=== PATIENT | female | born 1945 | race Caucasian/White ===

== ENCOUNTER 2018-08-01 09:25 | Inpatient (IN) | payer OTHER ==
[~2018-08-01] VITALS: Ht 165.1 cm; Wt 158.8 kg
--- NOTE | ~2018-08-01 | HC ---
[facility] [place] [address] CONSULTATION Name: VIOLA DENT Room #: 462-P [facility] IN M.R.#: [id number] Admission: 08/01/18 Attend Phys: Duane Gomez MD Discharge: Date of : 45 Report #: [id number] THIS REPORT FOR: //name// CC: Duane Gomez DATE OF SERVICE: 08/02/2018 HISTORY OF PRESENT ILLNESS: The patient is a 73-year-old white female who has had problems with several falls at home, worsening weakness, nausea, vomiting, decreased p.o. intake. She was diagnosed with gastroenteritis. She had acute renal insufficiency superimposed on chronic kidney disease. She underwent an EGD, which showed evidence of gastritis and she had polypectomy x 2. She does have a concurrent chronic left shoulder pain and has a rotator cuff tear there with degenerative arthritic changes. Ultrasound of the abdomen showed a right renal mass suspicious for neoplasm and she is going down currently for CT scan. We are seeing her in rehabilitation medicine consultation. PAST MEDICAL HISTORY: Morbid obesity, osteoarthritis of the knees, atrial fibrillation, hypertension. She takes anticoagulation with Pradaxa. PAST SURGICAL HISTORY: Noncontributory. FAMILY HISTORY: Noncontributory. ALLERGIES: No known drug allergies. MEDICATIONS: Please see the full medication listing. HABITS: Includes vitamins, herbals, and supplements. SOCIAL HISTORY: She lives in a duplex alone, two steps to get in. She has a stair glide to get up and down the steps. She did not typically utilize gait aids, although she does have a walker there. There is a sister in the area, but the sister ____ down in [place] and is currently on her way or will be leaving soon to go down to [place]. REVIEW OF SYSTEMS: She has the complaints of the left shoulder pain. No current complaints of chest pain, shortness of breath or abdominal discomfort. Denied any bleeding episodes or dark stools. PHYSICAL EXAMINATION: GENERAL: A 73-year-old morbidly obese white female in no obvious distress. VITAL SIGNS: Temperature 98.6, pulse 84, respirations 18, blood pressure 126/61. She is 5 foot 5 inches and weighs 350 pounds. NEUROLOGIC: Facies are symmetric. She favors the left shoulder with the rotator cuff tear. Appears to have reasonable strength, elbow flexion, [facility] [address] [place] [address] CONSULTATION Name: VIOLA DENT Room #: 462-P [facility] IN .R.#: [id number] Admission: 08/01/18 Attend Phys: Duane Gomez MD Discharge: Date of : 45 Report #: [id number] extension in left hand. Favor that right shoulder some as well, although she has better movement of the right shoulder than the left. Strength is probably a grade 4- to 3+/5, right upper extremity. She does have considerable morbid obesity with a large pendulous abdomen. In her lower extremities, there is no focal calf swelling. Strength is a grade 4- to 3+/5. DTRs are trace to 1. Tone appeared to be intact. She was max assist with sit to stand, has not ambulated. The therapist workup here again today and she was able to achieve upright standing transitioning hands on to the walk with only standing assist. She maintained standing for approximately 30 seconds. She was unable to take any steps. ASSESSMENT: A 73-year-old white female with the following problems: 1. Medical complexity with generalized debilitation. 2. Multiple falls at home. 3. Gastroenteritis with evidence of gastritis per EGD. 4. Apparent renal mass to undergo CT of the abdomen. 5. Acute renal insufficiency superimposed on chronic kidney disease. 6. Left shoulder arthritis with rotator cuff tear, chronic. 7. Morbid obesity. 8. Mild cardiomyopathy. 9. Chronic atrial fibrillation. PLAN: She is currently going down for a CT scan. We will add occupational therapy to assess as well. Insurance will need to be checked regarding rehab therapy issues as she further medically stabilizes. We will be glad to follow along with you. By: 1546 0525 Duane Velasquez MD /ISABEL
--- NOTE | ~2018-08-01 | HC ---
[facility] [place] [address] CONSULTATION Name: VIOLA DENT Room #: 462-P [facility] IN M.R.#: [id number] Admission: 08/01/18 Attend Phys: Duane Gomez MD Discharge: Date of : 45 Report #: [id number] THIS REPORT FOR: //name// CC: Duane Gomez HISTORY OF PRESENT ILLNESS: This 73-year-old female who was admitted through the Emergency Room with nausea, vomiting and findings of anemia and presumed gastroenteritis. This part of that evaluation, she has undergone endoscopy, which led to removal of a duodenal polyp. This showed a well-differentiated neuroendocrine tumor/carcinoid. Prior to her hospitalization, she denies any flushing. She has not had issues with diarrhea or ongoing issues with nausea or vomiting. She was unaware of any blood loss in her emesis or stools. PAST MEDICAL HISTORY: Significant for mild cardiomyopathy with atrial fibrillation and longstanding anticoagulation with Pradaxa. She also was morbidly obese with medically managed hypertension and hyperlipidemia. ALLERGIES: None known. MEDICATIONS: As in the MFR. REVIEW OF SYSTEMS: Negative for any sweats, chills, fevers, antecedent weight loss, palpable masses, new areas of pain. It is otherwise as in the history of present illness. SOCIAL HISTORY: She is a nonsmoker with occasional alcohol. FAMILY HISTORY: Negative for malignancy. PHYSICAL EXAMINATION: GENERAL: Shows her to be alert. HEENT: Normocephalic. Her mouth is clear. LUNGS: Chest is clear. CARDIOVASCULAR: Irregularly irregular pulse. ABDOMEN: Morbid obesity. EXTREMITIES: No clubbing. NEUROLOGIC: No focal localizing signs. PSYCHIATRIC: Not agitated or confused. LYMPHATICS: No palpable supraclavicular adenopathy. SKIN: Normal turgor. LABORATORY DATA: Labs have shown iron deficiency anemia. Her pathology from this lesion shows the deep resection margin with the tumor extending to that inked margin, which is concerning. Otherwise, appears low grade with low number of mitoses. 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 PLAN: Laboratory studies have been ordered. We will discuss with GI regarding further resection and I have discussed possible neuroendocrine PET scan for further evaluation though earlier CAT scans show nothing to suggest liver metastasis or widespread disease outside of this resected area. Thanks for allowing us to see her in consultation and being allowed to participate in her care. By: 1118 1254 Ange Pedersen MD /nt
[~2018-08-01 09:25] MED LIST: BENICAR HCT 401 EAC1 PO; CARVEDILOL6.25 MG PO; FLEXERIL PO; NORCO 5-325 TA1 EACH PO
[2018-08-01 09:26] VITALS: BP 115/68
[2018-08-01 09:59] LABS: HEMOGLOBIN 8.2 gm/dL (12.0-15.0)
[2018-08-01 10:08] LABS: HEMATOCRIT 28.3 % (37.0-47.0); MCH 23.1 pg (26.0-34.0); MCV 79.6 fL (80.0-100.0); PLATELET COUNT 168 thou/uL (150-400); RBC 3.56 mil/uL (4.20-5.00); WBC 7.1 thou/uL (4.0-11.0)
[2018-08-01 10:10] LABS: ANION GAP 12 mmol/L (7-16); BUN 47 mg/dL (7-18); CALCIUM 9.8 mg/dL (8.5-10.1); CHLORIDE 104 mmol/L (98-107); CO2 23 mmol/L (21-32); GLUCOSE 104 mg/dL (74-106); POTASSIUM 4.6 mmol/L (3.5-5.1); SODIUM 139 mmol/L (136-145)
[2018-08-01 10:15] LABS: MAGNESIUM 1.8 mg/dL (1.8-2.4)
[2018-08-01 10:19] LABS: LIPASE 120 U/L (73-393); SGOT 45 U/L (15-37); SGPT 26 U/L (30-65); TOTAL BILIRUBIN 1.1 mg/dL (<0.1-1.0); TOTAL PROTEIN 6.2 g/dL (6.4-8.2); TROPONIN-I <0.06 ng/mL (<0.06)
[2018-08-01 10:28] LABS: URINE CLARITY CLEAR; URINE COLOR YELLOW; URINE SPECIFIC GRAVITY 1.025 (1.005-1.035)
[2018-08-01 10:29] LABS: URINE BILIRUBIN NEGATIVE (Negative); URINE BLOOD NEGATIVE (Negative); URINE GLUCOSE-RANDOM* NEGATIVE (Negative); URINE KETONES NEGATIVE (Negative); URINE LEUKOCYTES-REFLEX NEGATIVE (Negative); URINE NITRITE-REFLEX NEGATIVE (Negative); URINE PROTEIN (DIPSTICK) NEGATIVE (Negative); URINE UROBILINOGEN 0.2 E.U./dl (0.2-1.0)
[2018-08-01] MEDS ORDERED: PRADAXA150 MG PO (10:54)
[2018-08-01] MEDS ORDERED: DILTIAZEM 24HR360 M1 PO (10:55)
[2018-08-01] MEDS ORDERED: CRESTOR5 MG PO (10:56)
[2018-08-01] MEDS ORDERED: COZAAR 25 MG TA25 M1 PO (10:56)
[2018-08-01 10:59] VITALS: BP 119/67
[2018-08-01 11:00] LABS: APTT 40.2 Seconds (24.5-32.8); INR 1.2; PROTIME 12.5 Seconds (9.3-11.4)
[2018-08-01 11:10] VITALS: BP 122/64
[2018-08-01 11:30] VITALS: BP 112/66
[2018-08-01 11:33] LABS: ABSOLUTE NEUTROPHILS 6.3 thou/uL (1.4-8.2); ANISOCYTOSIS 2+; HYPOCHROMASIA 1+
[2018-08-01 11:34] LABS: OVALOCYTES FEW; TEARDROPS OCCASIONAL
--- NOTE | 2018-08-01 13:23 | EKG ---
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
[2018-08-01 14:29] LABS: % SATURATION 7 % (20-39); IRON 24 ug/dL (50-170); TIBC 340 ug/dL (250-450)
--- NOTE | 2018-08-01 15:23 | 2DMMODE ---
[place] [address] [facility] [place] [address] 2 D/M-MODE ECHOCARDIOGRAM Name: VIOLA DENT Room #: 462-P [facility] IN ..#: [id number] Admission: 08/01/18 Attend Phys: Dc López MD Discharge: Date of : 45 Date of Service: 08/01/18 1522 Report #: [id number] THIS REPORT FOR: //name// APPROVED REPORT Study performed: 08/01/2018 14:18:13 EXAM: Comprehensive 2D, Doppler, and color-flow Echocardiogram Patient Location: Bedside Room #: 462 Status: routine BSA: 2.51 HR: 111 bpm BP: 112/66 mmHg Rhythm: Atrial Fibrillation Other Information Study Quality: Adequate Technically limited study due to morbid obesity, limited mobility. Indications Permanent A-fib. Hx: Cardiomyopathy, HTN, HLP. 2D Dimensions RVDd: 49.22 mm IVSd: 14.24 (7-11mm) LVOT Diam: 20.12 (18-24mm) LVDd: 46.07 mm PWd: 14.19 (7-11mm) Ascending Ao: 38.04 (22-36mm) LVDs: 32.57 (25-40mm) Aortic Root: 33.09 mm Volumes Left Atrial Volume (Systole) Single Plane 4CH: 127.27 mL Single Plane 2CH: 127.91 mL LA ESV Index: 54.00 mL/m2 Aortic Valve AoV Peak Albaro.: 3.23 m/s AO Peak Gr.: 41.82 mmHg LVOT Max P.08 mmHg AO Mean Gr.: 28.05 mmHg AO V2 Mean: 2.56 m/s LVOT Max V: 1.01 m/s AO V2 VTI: 64.57 cm ZIA Vmax: 0.99 cm2 [facility] [place] [place] [address] 2 D/M-MODE ECHOCARDIOGRAM Name: VIOLA DENT Room #: 462-P [facility] IN M.R.#: [id number] Admission: 08/01/18 Attend Phys: Dc López MD Discharge: Date of : 45 Date of Service: 08/01/18 1522 Report #: [id number] Mitral Valve MV Decel. Time: 206.53 ms MV E Max Albaro.: 1.31 m/s Pulmonary Valve PV Peak Albaro.: 0.96 m/s PV Peak Gr.: 3.78 mmHg Tricuspid Valve TR Peak Albaro.: 3.02 m/s RAP Estimate: 10.00 mmHg TR Peak Gr.: 36.36 mmHg PA Pressure: 46.00 mmHg Left Ventricle The left ventricle is normal size. There is normal LV segmental wall motion. Mild concentric left ventricular hypertrophy. Left ventricular systolic function is normal. LVEF is 50-55%. This study is not technically sufficient to allow evaluation of the LV diastolic function due to atrial fibrillation. Right Ventricle Right ventricle is dilated. The right ventricular systolic function is normal. Atria Left atrium is dilated. Right atrium is dilated. Aortic Valve Aortic valve is moderately calcified, moderately stenotic. Trace aortic regurgitation. Calculated aortic valve area is 1.0 cm2 with maximum pressure gradient of 41 mmHg and mean pressure gradient of 27mmHg. Mitral Valve Mild mitral annular calcification Trace to mild mitral regurgitation. Tricuspid Valve The tricuspid valve is normal in structure. Mild to moderate tricuspid regurgitation. Estimated PAP is 45mmHg. Pulmonic Valve Pulmonic valve is not well visualized. Trace pulmonic regurgitation. Great Vessels The aortic root is normal in size. The ascending aorta is borderline [facility] [address] [place] [address] 2 D/M-MODE ECHOCARDIOGRAM Name: VIOLA DENT Room #: 462-P [facility] IN ..#: [id number] Admission: 08/01/18 Attend Phys: Dc López MD Discharge: Date of : 45 Date of Service: 08/01/18 1522 Report #: [id number] dilated. IVC is dilated and collapses >50% with inspiration. Pericardium There is no pericardial effusion. <Conclusion> Left ventricular systolic function is normal. There is normal LV segmental wall motion. LVEF 50-55%. Both atria are dilated. Aortic valve is moderately calcified, moderately stenotic. Calculated aortic valve area is 1.0 cm2 with maximum pressure gradient of 41 mmHg and mean pressure gradient of 27mmHg. Mild mitral annular calcification. Trace to mild mitral regurgitation. Mild to moderate tricuspid regurgitation. Estimated pulmonary artery pressure of 45mmHg. There is no pericardial effusion. <ELECTRONICALLY SIGNED> By: Christian Machado MD, [facility] 08/01/18 1522 1522 1522 Christian Machado MD, FACC /INF
[2018-08-01 15:50] VITALS: BP 116/51
--- NOTE | 2018-08-01 15:56 | NUR ---
CM CONSULTED FOR ADVANCED DIR AND DCP. PT NEW TO UNITE TODAY. VIOLA IS A & O X3, AND ABLE TO MAKE HER NEEDS KNOW. SISTER AND BROTHER IN LAW AT BEDSIDE WELL. INTRO TO CM, TRANSITION OF CARE, HOME HEALTH AND POST ACUTE REHAB. " [place] REHAB WOULD BE GOOD, NOT SURE WITH SHOULDER PAIN IF COULD GO HOME RIGHT NOW ANY WAY"/PT. [facility] SNF LIST PROVIDED AND EDUCATION ON ADVANCED HC/DPOA " I DON'T NEED ONE OF THOSE"/PT. GI PHYSICIAN MADE VISIT PT AGREED TO UPPER SCOPE AND DECLINED WANTING TO DO COLON SCOPE " I WILL THINK ABOUT COLON SPOKE AND LET YOU KNOW TOMORROW"/VIOLA. PT REPORTED " 4 FALLS, JUST GET SO WEAK, LIKE MY FOOT DID NOT MAKE IT ON TO BED AND FELL. LIVE IN [facility], 2 STEP INTO FROM GARAGE, THE 15 STEPS INSIDE HOME. HAVE STAIR LIFT FOR 12 STAIRS THEN HAVE LANDING AND 3 MORE STAIRS. HAVE SHOWER CHAIR, GRAB BARS, WALKER WITH SEAT THAT I USE OUTSIDE THE HOME. MANAGE OWN MEDICATION AND I DO TAKE PRADAXA. INDEPENDENT WHEN FEELING OK, DON'T CLEAN. CARRY CELL PHONE AROUND, NO LIFE ALERT. MY SISTER, THEY STAY IN [place] IN WINTER AND HER OTHER TIME OF YEAR. SHE HAS TO GO BACK BY [place] NEXT WEEK CAN COME FOR VISIT AND CAN GET TO REHAB. THINKING [facility]."VIOLA AND SISTER. EDUCATION THAT DEPENDING ON TEST AND PROCEDURE RESULT POSSIBLE DC TO REHAB SOONER THAN NEXT WEEK. " THAT IS GREAT THANKS"/PT. WILL CONT FOLLOWING NEEDED FOR DC NEEDS.
--- NOTE | 2018-08-01 15:58 | NUR ---
PT ARRIVED ON UNIT FROM ER. ADMISSION HX, ASSESSMENT AND MED REC COMPLETE. ORDERS IMPLEMENTED. EGD TOMORROW. PT RESTING, FAMILY AT BEDSIDE.
[2018-08-01 19:43] VITALS: BP 105/42
--- NOTE | 2018-08-02 04:07 | NUR ---
Pt. rested quietly at short intervals during the night when checked on during frequent rounds. She did c/o pain to her left shoulder and was given po pain meds (see emar) with some relief of pain noted. Bed alarm is on.
[2018-08-02 05:22] VITALS: BP 106/78
[2018-08-02 05:55] LABS: CALCIUM 9.1 mg/dL (8.5-10.1); CREATININE 1.6 mg/dL (0.6-1.0); POTASSIUM 4.3 mmol/L (3.5-5.1)
[2018-08-02 05:57] LABS: HEMATOCRIT 24.6 % (37.0-47.0); HEMOGLOBIN 7.3 gm/dL (12.0-15.0); MCH 23.1 pg (26.0-34.0); MCHC 29.6 g/dL (28.0-37.0); MCV 77.9 fL (80.0-100.0); RBC 3.15 mil/uL (4.20-5.00); RDW 19.8 % (10.5-14.5); WBC 6.7 thou/uL (4.0-11.0)
[2018-08-02 07:55] VITALS: BP 126/61
--- NOTE | 2018-08-02 08:43 | EKG ---
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: : 1945 Requested By: Ani Fonseca Order Number: [id number] MD: Christian Machado Measurements Intervals [place] Rate: 91 P: [place]: QRS: -62 QRSD: 148 T: 10 QT: 390 QTc: 480 Interpretive Statements Atrial fibrillation IVCD, consider atypical RBBB Low voltage QRS Compared to ECG 08/01/2018 10:17:57 No significant change was found Electronically Signed On 08-02-2018 8:43:15 STATISTICAL CLERK by Christian Machado [email or web address] <ELECTRONICALLY SIGNED> By: Christian Machado MD, [facility] 08/02/18 0843 1 1 Christian Machado MD, [facility] /EPI
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
--- NOTE | 2018-08-02 11:10 | NUR ---
Assess due to RD consult received for diet instruction. Pt admitted with weakness, anemia. Lives alone. Class III extreme obesity with BMI 58.2. EGD today and possible need for colonoscopy and M2 capsule study, On IV iron. Renal mass was noted. Will defer any diet education for obesity at this time while etiology anemia being determined. Low nutrition risk.
--- NOTE | 2018-08-02 11:16 | NUR ---
WOUND CONSULT: PT. WAS SEEN TODAY FOR WOUND EVLAUATION. PT. 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 PT. REPORTS THAT SHE HAS HAD MULTIPLE IN THE PAST AND THEY HEAL WELL. SHE STATES THAT THIS IS THE LARGEST ONE YET. WOUND BED IS BEEFY RED AND FREE OF ANY SIGNS OR SYMPTOMS OF INFECTION. RECOMMENDATIONS: WOUND CARE TO LEFT LATERAL LEG: GENTLY CLEANSE AREA WITH WOUND CLEANSER OR NORMAL SALINE, COVER WITH OPTIFOAM AG, SECURE WITH KERLIX AND TAPE. COMPLETE CARES DAILY AND PRN. PT. AND STAFF NURSE WERE INSTRUCTED ON PLAN OF CARE.
[2018-08-02 15:17] LABS: HEMATOCRIT 25.7 % (37.0-47.0); HEMOGLOBIN 7.6 gm/dL (12.0-15.0)
[2018-08-02 16:12] VITALS: BP 93/55
--- NOTE | 2018-08-02 18:28 | NUR ---
DR. OQUENDO SAW PATIENT THIS DATE FOR CONSULTATION. OCCUPATIONAL THERAPY HAD NOT SEEN PATIENT YET AND PATIENT IS NOT MEDICALLY READY FOR REHAB ADMISSION THIS DATE. DAIRY FEED SALES CONSULTANT WILL FOLLOW. THANK YOU FOR THIS REFERRAL.
[2018-08-02 19:56] VITALS: BP 102/0; BP 102/50
--- NOTE | 2018-08-02 19:59 | NUR ---
PATIENT SAT UP ON SIDE OF BED THROUGHOUT THE DAY TODAY. WOUND CARE PLACED DRESSING ON LEFT ANKLE ULCER. VILLANUEVA INTACT. IRON INFUSION GIVEN. MEDICATED WITH TRAMADOL FOR LEFT SHOULDER PAIN AND HELPFUL. EGD DONE THIS AFTERNOON WITH NO SIGNS OF BLEEDING REPORTED. CT ABD DONE. SCHEDULED FOR COLONOSCOPY IN AM. INSTRUCTED NPO AFTER MIDNIGHT.
[2018-08-03 03:29] VITALS: BP 103/65
[2018-08-03 05:44] LABS: HEMATOCRIT 28.5 % (37.0-47.0); HEMOGLOBIN 8.1 gm/dL (12.0-15.0)
[2018-08-03 05:59] LABS: CALCIUM 9.8 mg/dL (8.5-10.1); CREATININE 1.5 mg/dL (0.6-1.0); POTASSIUM 4.1 mmol/L (3.5-5.1)
--- NOTE | 2018-08-03 08:09 | NUR ---
PROGRESS PT TAKING BOWEL PREP UP WITH 1 TO 3 FOR SAFETY, STOOLING THROUGHOUT SHIFT BY THIS TIME STOOL IS CLEAR WATERY YELLOW, TELE READING AFIB WITH RVR RATES FROM 24 TO 180 PT ASYMPTOMATIC NOTIFIED TO COME IN AND EVALUATE PT.
[2018-08-03 08:39] VITALS: BP 136/85
--- NOTE | 2018-08-03 16:08 | NUR ---
[facility]N HAS SOUGHT AUTH FOR ACUTE INPATIENT REHAB. CM TO FOLLOW INDICATED WITH DC PLANNING.
[2018-08-03 16:56] VITALS: BP 109/58
--- NOTE | 2018-08-03 17:41 | NUR ---
[address] [place] [address] CONSULT RECEIVED 08/02/[address] OQUENDO ASSESSED PATIENT. PATIENT DEMONSTRATES THE NEED FOR AN ACUTE INPATIENT REHAB UNIT STAY; SEE DR. OQUENDO'S CONSULT FOR DETAILS. GLOBAL MARKETING OPERATIONS MANAGER PHONES CARLEY AT 14:40 TO INITIATE REQUEST FOR AUTHORIZATION OF AN ACUTE INPATIENT REHAB UNIT STAY. SPOKE WITH KAM ([phone]) WHO TAKES INITIAL INFORMATION AND PROVIDES PENDING CASE REFERENCE NUMBER: [id number]. FAXED CLINICAL INFORMATION FOR REVIEW TO [phone]. RECEIVED A PHONE CALL FROM CARLEY SNEED, FOR USABILITY SPECIALIST PETER REQUESTING CLINICAL INFORMATION BE FAXED TO [phone]. FAXED CLINICAL AT 15:50. AT APPROXIMATELY 1700, GLOBAL MARKETING OPERATIONS MANAGER SPOKE WITH PETER (PHONE: [phone]). PETER STATES THE CASE IS IN REVIEW WITH THE SLATE ROOFER HELPER, HOWEVER, ALSO INDICATES WE LIKELY WILL NOT GET A DECISION TODAY. PETER PROVIDES ON-CALL RN PHONE, , TO CONTACT ON 08/04/2018 IF A DECISION IS NOT RENDERED TODAY, 08/03/18. WILL CONTINUE TO AWAIT A DECISION FROM CARLEY. THANK YOU FOR THIS REFERRAL.
--- NOTE | 2018-08-03 18:16 | NUR ---
Pt taken down for colonoscopy at 1030 am. FC maintained since pt is in severe pain when getting up fr bed. Diet has been changed to a soft fiber restricted diet and i well tolerated. Plan is for pt to go to rehab on the 5th floor
[2018-08-03 19:58] VITALS: BP 128/55
--- NOTE | 2018-08-04 00:31 | NUR ---
Assumed care of the patient at 1944 pm. Alert et oriented x 4. Makes needs known. Demanding at times. Complained of pain earlier in the shift, medicated with prn pain medication. She complained of her left shoulder hurting, rated it a 6/10. Muñiz draining with clear lewis urine to DD. IV site intact to left hand. Dressing changed to the patient's left foot wound. Sitting on the side of the bed at this time.
[2018-08-04 05:28] LABS: HEMATOCRIT 25.6 % (37.0-47.0); HEMOGLOBIN 7.4 gm/dL (12.0-15.0)
[2018-08-04 05:35] LABS: CALCIUM 9.6 mg/dL (8.5-10.1); CREATININE 1.6 mg/dL (0.6-1.0); POTASSIUM 3.8 mmol/L (3.5-5.1)
[2018-08-04 08:00] VITALS: BP 146/67
--- NOTE | 2018-08-04 08:51 | NUR ---
AIRPLANE INSPECTOR PHONED CARLEY'S WEEKEND ON-CALL RN AT [phone] AT APPROXIMATELY 8:15. SPOKE WITH AN ANSWERING PERSONAL CONSULTANT WHO STATED A [employer] PUBLIC ADDRESS SYSTEM OPERATOR WOULD RETURN LIAISON'S PHONE CALL. RECEIVED PHONE CALL FROM CARLEY SCHWARZ PUBLIC ADDRESS SYSTEM OPERATOR RN, AT 8:49. KARISHMA STATES REQUEST FOR AUTHORIZATION FOR ACUTE REHAB IS STILL PENDED. SHE STATES THE AQUATIC LIFE LABORER HAS NOT YET REVIEWED THE CASE AND THAT THERE IS NO REVIEW FOR INPATIENT REHAB OVER THE WEEKEND. THUS, ANTICIPATE WE WILL HAVE A DETERMINATION ON 08/06/18. WILL AWAIT CARLEY'S DETERMINATION. PATIENT DOES NOT HAVE AUTHORIZATION FOR ACUTE REHAB AT THIS TIME.
[2018-08-04 15:00] VITALS: BP 106/56
[2018-08-04 19:36] VITALS: BP 103/48
--- NOTE | 2018-08-04 19:37 | NUR ---
Pt vs stable, FC maintianed due to sever pain when she moves and cannot ambulate and obesity. Pt is very demanding and wound want to be sitting at the side of the bed then would ask to be moved up to the bed to just go back down again. Dresing change done twice due the dressing being soaked of drainage. Pt still has pain on her left shoulder but did not request for pain meds and did mention she would like to take them prior to going to sleep tonight, No complaints or other issues identified.
--- NOTE | 2018-08-05 01:38 | NUR ---
The patient has been sitting on the side of the bed at times during this noc shift. Alert et oriented X 4. Makes needs known. Has trouble moving around in her bed due to her obesity. Dressing intact to her left ankle/foot. She complained of pain earlier in the shift, requested pain medication, which was given as per her request. She has been sleeping a few hours so far this noc shift.
[2018-08-05 05:06] VITALS: BP 101/79
--- NOTE | 2018-08-05 05:30 | NUR ---
PT HAS VILLANUEVA FOR IMMOBILIZATION
--- NOTE | 2018-08-05 05:40 | NUR ---
THE PATIENT HAS BEEN SITTING ON THE SIDE OF THE BED FOR ABOUT 2 HOURS THIS NOC SHIFT. LEFT ANKLE WOUND WAS CLEANED WITH WOUND CLEANSER AND THE DRESSING WAS PUT ON ORDERED, WRAPPED WITH KERLIX AND APPLIED TAPE TO THE KERLIX. S.L. FLUSHS WITHOUT ANY DIFFICULTY. DENIES PAIN AT THIS TIME. ASSISTED THE PATIENT BACK TO BED AFTER THIS NATIONAL SALES ASSOCIATE DID HER WOUND CARE.
[2018-08-05 07:43] VITALS: BP 128/61
[2018-08-05 10:22] LABS: HEMATOCRIT 24.6 % (37.0-47.0); HEMOGLOBIN 7.2 gm/dL (12.0-15.0); MCH 23.8 pg (26.0-34.0); MCHC 29.4 g/dL (28.0-37.0); MCV 81.1 fL (80.0-100.0); RBC 3.04 mil/uL (4.20-5.00); RDW 19.6 % (10.5-14.5); WBC 8.5 thou/uL (4.0-11.0)
[2018-08-05 10:33] LABS: CALCIUM 9.3 mg/dL (8.5-10.1); CREATININE 1.5 mg/dL (0.6-1.0); POTASSIUM 4.4 mmol/L (3.5-5.1)
[2018-08-05 11:54] VITALS: BP 115/68
[2018-08-05 16:04] VITALS: BP 132/51
--- NOTE | 2018-08-05 19:24 | NUR ---
PT STABLE THROUGHOUT SHIFT. NO C/O PAIN, SEVERAL VISITORS. PT RESTING COMFORTABLY.
[2018-08-05 19:44] VITALS: BP 101/38
[2018-08-06 03:39] VITALS: BP 117/62
--- NOTE | 2018-08-06 04:57 | NUR ---
progress pt a/o x4 up with 1 assist and walker, using bsc, pain to left shoulder controlled with tramadol and repositioning. iv dc'd from hand d/t pt c/o pain and site was slightly swollen and red 22 g started in left forearm. voiding qs, no bm this shift pt dozed off and on. hopes to dc to rehab today.
[2018-08-06 08:46] VITALS: BP 108/65
--- NOTE | 2018-08-06 09:07 | NUR ---
SLIDE FASTENER CHAIN ASSEMBLER RECEIVED PHONE CALL FROM [employer], PETER, REGARDING AUTHORIZATION FOR ACUTE REHAB STAY FOR PATIENT. ACUTE REHAB HAS BEEN PRELIMINARILY DENIED. PEER TO PEER OPTION IS AVAILABLE. IF PHYSICIAN WOULD LIKE TO CONTINUE TO PURSUE ACUTE REHAB AN OPTION FOR THE PATIENT, MUST BE CALLED BY 1PM ON MONDAY, AUG 08, TO SCHEDULE A PEER TO PEER. HR SYSTEMS ANALYST/RED LEAD BURNER INFORMED.
--- NOTE | 2018-08-06 10:14 | NUR ---
5N WAS DENIED BY INSURANCE. C, MET WITH PT AT BEDSIDE AND ASKED WHERE SHE WOULD LIKE REFERRALS SENT FOR POST ACUTE CARE STAY AND SHE INDICATED [facility]. CM REQUESTED THAT DC HOSPITAL EDUCATOR FAX REFERRALS. CM TO FOLLOW INDICATED WITH DC PLANNING.
--- NOTE | 2018-08-06 10:28 | NUR ---
DP SENT REFERRALS FOR REVIEW TO [facility] AND [facility], DP SENT TEXT TO BOTH LOCATIONS, ADVISING THAT REFERRAL WAS BEING FAXED OVER ON PATEINT.
--- NOTE | 2018-08-06 12:29 | NUR ---
WOUND CARE FOLLOW UP; F/U WITH THE LEFT LAT VENOUS STASIS WOUND REVEALS A YELLOW FIBRINOUS WOUND BED. NO S/S OF INFECTION. RECOMMENDATION; ADD CESAR CHANGE M/W/F PRN, MAY CHANGE THE FOAM PORTION OF THE DRESSING IF DRESSING IS OVERTAKED WITH DRAINAGE. DISCUSSED WITH ERROL
[2018-08-06 12:38] LABS: HEMATOCRIT 29.4 % (37.0-47.0); HEMOGLOBIN 8.2 gm/dL (12.0-15.0); MCH 23.3 pg (26.0-34.0); MCHC 27.9 g/dL (28.0-37.0); MCV 83.5 fL (80.0-100.0); RBC 3.52 mil/uL (4.20-5.00); RDW 19.7 % (10.5-14.5); WBC 10.5 thou/uL (4.0-11.0)
[2018-08-06 12:49] LABS: CALCIUM 9.6 mg/dL (8.5-10.1); CREATININE 1.3 mg/dL (0.6-1.0); POTASSIUM 4.1 mmol/L (3.5-5.1)
--- NOTE | 2018-08-06 14:33 | NUR ---
PER , NEEDS TO BE SEEN BY ONC PRIOR TO DC, POSSIBLE DC TOMORROW PER
--- NOTE | 2018-08-06 15:06 | PATH ---
[facility] [place] [address] PATHOLOGY RPT PROCEDURE Name: VIOLA DENT Room #: 462-P ADM IN M.R.#: [id number] Admission: 08/01/18 Date of : 45 Discharge: Report #: [id number] Path Case #: [id number] [facility] Accession Number: [id number] . 01 Material submitted: . PART A: CECAL POLYP X 2 PART B: PROXIMAL ASCENDING COLON POLYP X 2 PART C: POLYP AT 30 CM X 2 PART D: RECTAL POLYP . 01 Clinical history: . Pre-OP DX: Anemia Post-OP DX: Colon polyps, rectal polyp . 02 Diagnosis: A. Polyp x 2, cecal polyp, endoscopic biopsy: - Tubular adenoma present in multiple fragments. - Negative for high-grade dysplasia. . B. Polyp x 2, proximal ascending colon polyp, endoscopic biopsy: - Favor an inflammatory polyp (please see comment). - Negative for dysplasia. . C. Polyp, polyp x 2 at 30 cm, endoscopic biopsy: - Multiple fragments showing changes compatible with hyperplastic polyps. - Negative for dysplasia. . D. Polyp, rectal polyp, endoscopic biopsy: - Tubular adenoma. - Negative for high-grade dysplasia. [facility]/08/06/2018 . 02 Comment: B. Examination shows partially hyalinized lamina propria with regenerative crypt epithelium as well as a mixture of inflammatory cells within the lamina propria. A focus of crypt abscess formation is identified as well. The regenerative epithelium as well as lamina propria fibrosis mimic ischemia-like changes. Overall, the inflammatory change as well as the regenerative changes within the surface epithelium maybe suggestive of an inflammatory polyp. The differential diagnosis includes ischemic changes. Please correlate clinically. (IUV:pit 08/06/2018) . 02 Electronically signed: . Michelle Reina MD, Pathologist NPI- [id number] . [address] [address] PATHOLOGY RPT PROCEDURE Name: DENTVIOLA Room #: 462-P [facility] IN ..#: [id number] Admission: 08/01/18 Date of : 45 Discharge: Report #: [id number] Path Case #: [id number] Gross description: . A. Received in formalin labeled "Viola Dent, cecal polyp x2," are 3 segments of cohen soft tissue measuring 1.1 x 0.5 x 0.2 cm in aggregate dimensions and ranging from 0.3 to 0.5 cm in maximum dimension. The specimen is submitted entirely in cassette A1. . B. Received in formalin labeled "Viola Dent, proximal ascending colon polyp x2," are 2 segments of cohen soft tissue measuring 0.9 x 0.3 x 0.3 cm in aggregate dimensions and ranging from 0.4 to 0.5 cm in maximum dimension. The specimen is submitted entirely in cassette B1. . C. Received in formalin labeled "Viola Dent, polyp at 30 cm x2," are 3 segments of cohen soft tissue measuring 1.5 x 0.8 x 0.2 cm in aggregate dimensions and ranging from 0.4 to 1.4 cm in maximum dimension. The specimen is submitted entirely in cassette C1. . D. Received in formalin labeled "Viola Dent, rectal polyp, " is a single segment of cohen soft tissue measuring 0.6 cm in maximum dimension. The specimen is entirely submitted in cassette D1. (TSD; 08/03/2018) TOB/TOB . 02 Pathologist provided ICD-10: D12.0, K63.5, D12.8 . 02 CPT . 232443, 490193, 406359, 594787 Specimen Comment: A courtesy copy of this report has been sent to Specimen Comment: [phone], . Specimen Comment: Report sent to / DR QUAN Performed at: [address], [place] [id number] MD Kar Chavez MD Phone: [phone] Performed at: [address] [id number] MD Michelle Reina MD Phone: [phone]
--- NOTE | 2018-08-06 15:06 | PATH ---
[facility] [place] [address] PATHOLOGY RPT PROCEDURE Name: VIOLA DENT Room #: 462-P ADM IN M.R.#: [id number] Admission: 08/01/18 Date of : 45 Discharge: Report #: [id number] Path Case #: [id number] [facility] Accession Number: [id number] . 01 Material submitted: . PART A: BX GASTRIC PART B: POLYP AT DUODENAL BULB PART C: ANTRAL POLYP . 01 Clinical history: . Anemia Gastric polyp, duodenal bulb polyp, mild gastritis Rule out H. pylori . 02 Diagnosis: A. Gastric mucosa, gastric, endoscopic biopsy: - Moderated to marked active gastritis with focal early intestinal metaplasia. - Negative for atrophy or dysplasia. - Negative for Helicobacter pylori (properly controlled immunohistochemical stain performed). . B. Polyp, at duodenal bulb, endoscopic biopsy: - WELL DIFFERENTIATED NEUROENDOCRINE TUMOR, GRADE 1 WITH LESS THAN 2 MITOSES/MM2 MEASURING 0.6CM IN GREATEST DIMENSIONS. - EXTENDS TO THE INKED MARGIN. . C. Polyp, antral polyp, endoscopic biopsy: - Compatible with a hyperplastic and inflammatory polyp. - Negative for dysplasia or malignancy. [facility]/08/06/2018 . 02 Comment: Part A: An intensive search for Helicobacter pylori-like organisms is negative. Absence of such organisms does not entirely exclude the possibility and may be due to sampling. Other possible etiologies may include chemical gastritis, autoimmune gastritis, gastritis associated with inflammatory bowel disease. Please correlate with clinical, endoscopic, and microbiological studies if clinically indicated. . Part B: Immunohistochemical stains are performed on block B1 and included synaptophysin, chromogranin and villin (on block B). The tumor is strongly reactive to synaptophysin and chromogranin. The tumor is non-reactive to villin. Findings are consistent with a carcinoid tumor or a well differentiated neuroendocrine tumor (WHO terminology). Multiple high power zaragoza are examined and show less than 2 mitoses per high power field. The tumor extends to the inked margins on the biopsy tissue. The [address] [address] PATHOLOGY RPT PROCEDURE Name: VIOLA DENT Room #: 462-P [facility] IN M.R.#: [id number] Admission: 08/01/18 Date of : 45 Discharge: Report #: [id number] Path Case #: [id number] account executive sales representative slides of this case are co-reviewed with Dr. Tomasa Baird who concurs with my diagnosis. Findings of this case are discussed with Dr. Dc López in the morning of 08/06/[address] Pavon at approximately 12:45 pm on 08/06/18. . (IUV:pit:db 08/06/2018) . . 02 Electronically signed: . Michelle Reina MD, Pathologist NPI- [id number] . 01 Gross description: . A. The specimen is received in formalin, labeled "Dent, Viola, gastric BX" and consists of a fragment of soft cohen tissue measuring 0.4 x 0.4 x 0.2 cm which is entirely submitted in A1. . B. The specimen is received in formalin, labeled "Dent, Viola, polyp at duodenal bulb" and consists of a polypoid segment of pink-cohen tissue measuring 0.8 x 0.6 x 0.5 cm. The margin is inked black. It is trisected and entirely submitted in B1. . C. The specimen is received in formalin, labeled "Dent, Viola, antral polyp" and consists of a polypoid segment of pink-cohen tissue measuring 0.6 x 0.5 x 0.4 cm. The margin is inked black. It is bisected and entirely submitted in C1. (SDY; 08/02/2018) SYU/SYU . 02 Pathologist provided ICD-10: K29.60, D3A.8, K31.7 . 02 CPT . 252525, 076106, 930058, W96177, T47115 Specimen Comment: A courtesy copy of this report has been sent to Specimen Comment: [phone], , . Specimen Comment: Report sent to ,DR LÓPEZ / DR QUAN Performed at: [address], [place], [place] [id number] MD Kar Chavez MD Phone: [phone] Performed at: [address] [id number] MD Michelle Reina MD Phone: [phone]
[2018-08-06 17:26] VITALS: BP 116/78
--- NOTE | 2018-08-06 19:30 | NUR ---
UP AND SITTING BY SIDE OF BED THROUGH THE DAY. SHE DOES NOT SEEM TO BE IN PAIN. WEAPING WOUNDS NOTED TO LLE. DRESSING CHANGED IT WAS WHEEPING. PT CONT TO PROGRESS TOWARDS DISCHARGE GOALS. SHE WILL BE DISCHARGED TOWORROW. WILL CONT WITH PLAN OF CARE.
[2018-08-06 20:21] VITALS: BP 140/89
[2018-08-07 03:00] VITALS: BP 128/104
--- NOTE | 2018-08-07 03:18 | NUR ---
PT UP FOR MOST OF THE NIGHT VS STABLE PT USED CALL LIGHT EFFECTIVELY NO ISSUES OVERNIGHT.
[2018-08-07 06:05] LABS: HEMOGLOBIN 8.2 gm/dL (12.0-15.0)
[2018-08-07 06:20] LABS: CALCIUM 9.6 mg/dL (8.5-10.1); CREATININE 1.1 mg/dL (0.6-1.0); POTASSIUM 4.1 mmol/L (3.5-5.1)
[2018-08-07 07:25] VITALS: BP 108/60
--- NOTE | 2018-08-07 09:59 | NUR ---
DP ORDERED CC FOR PATIENT, SHE WILL DC TODAY TO [facility], ONCE DC ORDERS GET PUT IN. CM TO FOLLOW UP.
[2018-08-07 10:06] LABS: ABSOLUTE RETIC COUNT 0.2603 10^6/uL; OBSERVED RETIC COUNT 7.6 % (0.6-2.6)
[2018-08-07] MEDS ORDERED: CARVEDILOL12.5 MG PO (14:17)
[2018-08-07] MEDS ORDERED: ACETAMINOPHEN325 M1 PO (14:18)
[2018-08-07] MEDS ORDERED: PROTONIX40 M1 PO (14:18)
[2018-08-07] MEDS ORDERED: TRAMADOL 50 MG50 MG PO (14:18)
[2018-08-07] MEDS ORDERED: CARDIZEM CD240 MG PO (14:18)
[2018-08-07 14:30] VITALS: BP 118/51
--- NOTE | 2018-08-07 15:05 | NUR ---
CARE TEAM INDICATED PT IS MEDICALLY STABLE TO DISCHARGE TO [facility] THIS DAY FOR SKILLED REHAB SERVICES. CHART COPY MADE. ORDERS HAVE BEEN FAXED. REPORT TO BE CALLED TO . PT AND SISTER ARE AWARE AND AGREEABLE. [facility]AN TRANSPORT ARRANGED FOR 1800. NO OTHER CM INTERVETNION INDICATED AT THIS TIME. CASE CLOSED.
[2018-08-07 17:57] VITALS: BP 118/51
--- NOTE | 2018-08-09 12:44 | P ---
[facility] [address] [address] PROCEDURE REPORT Name: VIOLA DENT Room #: 462-P [facility] IN M.R.#: [id number] Admission: 08/01/18 Attend Phys: Adrianna Gomez MD Discharge: 08/07/18 Date of : 45 Report #: [id number] THIS REPORT FOR: //name// CC: ADRIANNA Gomez BRIEF HISTORY: The patient is a 73-year-old woman with recent findings of iron deficiency anemia. She has never had a colonoscopy. PREOPERATIVE DIAGNOSIS: Iron deficiency anemia. POSTOPERATIVE DIAGNOSES: 1. Multiple colon polyps. 2. Rectal polyp. 3. Moderate sigmoid diverticulosis coli. MEDICATIONS: Deep sedation with propofol per anesthesia. SPECIMENS: 1. Cecal polyps x 2. 2. Proximal ascending colon polyps x 2. 3. Polyps at 30 cm x 2. 4. Rectal polyp. ESTIMATED BLOOD LOSS: 3 mL. PROCEDURE: Colonoscopy to cecum and terminal ileum with snare polypectomy and biopsy. FINDINGS: Prior to propofol sedation, the procedure of colonoscopy was discussed with the patient as well as potential risks and its complications. She indicates she understands and desires to proceed. DESCRIPTION OF PROCEDURE: With the patient in left lateral decubitus position, digital examination was completed, which revealed no abnormalities. Subsequently, the Olympus video colonoscope was introduced in the rectum, advanced under direct vision to the cecum. Done with minimal difficulty. Cecum was identified by the ileocecal valve and the appendiceal orifice. I was able to visualize the distal segment of the terminal ileum, which was inspected and noted to be unremarkable. No evidence of bleeding lesions in the ileum. At that point, the scope was slowly withdrawn and careful circumferential views were obtained including retroflexing the scope in the ascending colon. As we withdrew the scope, 2 diminutive polyps were seen and removed by biopsy from the cecum. In the proximal ascending colon, 2 polyps were seen, one was about a 5 mm polyp removed with cold snare polypectomy. The other was a diminutive polyp removed with biopsy forceps. The scope was further withdrawn and no additional abnormalities were noted until the left colon was reached. Then in the sigmoid [facility] [address] [place] [address] PROCEDURE REPORT Name: VIOLA DENT Room #: 462-P DIS IN M.R.#: [id number] Admission: 08/01/18 Attend Phys: Adrianna Gomez MD Discharge: 08/07/18 Date of : 45 Report #: [id number] colon, she was noted to have hygz-uh-zpahnckg sigmoid diverticular disease without endoscopic evidence of diverticulitis. In the sigmoid colon at 30 cm, 2 polyps were seen. One was a 5 mm polyp removed by cold snare polypectomy. The other was a diminutive polyp removed with biopsy forceps. The scope was withdrawn in the rectum and in the very distal rectum a 4-5 mm sessile polyp was seen, removed by cold snare polypectomy. Upon retroflexion, no abnormalities were seen. The scope was withdrawn and the patient tolerated the procedure well. DISPOSITION: The patient with iron deficiency anemia. She did have 6 small polyps. However, they were all fairly small and it is unlikely that those polyps were the sole cause of her iron deficiency anemia. We will follow up on path and make surveillance recommendations. If 3 or more polyps are adenomas, she will return in 3 years; if 1 or 2 adenomas, 5 years would be indicated. If none of them are adenomas, she is to return in 10 years. Due to her unexplained iron deficiency anemia, we will proceed with a small bowel capsule study at this time. This is the patient's first colonoscopy. Withdrawal time from the cecum was 70 minutes 10 seconds. <ELECTRONICALLY SIGNED> By: Jaydon Aponte MD 08/09/18 1244 1209 1811 Jaydon Aponte MD /nt
== END 2018-08-07 18:41 | DRG 377 ==
LOC: ER 09:25 → 4W 10:41
PROVIDERS: Emergency Medicine; Internal Medicine Cardiovascular Disease; Internal Medicine Gastroenterology; Internal Medicine Hematology & Oncology; Nurse Practitioner; Nurse Practitioner Family; Nurse Practitioner Gerontology; ADMIT Internal Medicine Geriatric Medicine
PROC: 0DB68ZZ Excision of Stomach, Via Natural or Artificial Opening Endoscopic (ICD-10-PCS; principal; 2018-08-02)
PROC: 0DB98ZZ Excision of Duodenum, Via Natural or Artificial Opening Endoscopic (ICD-10-PCS; principal; 2018-08-02)
PROC: 0DB68ZX Excision of Stomach, Via Natural or Artificial Opening Endoscopic, Diagnostic (ICD-10-PCS; principal; 2018-08-02)
PROC: 0DBP8ZZ Excision of Rectum, Via Natural or Artificial Opening Endoscopic (ICD-10-PCS; 2018-08-03)
PROC: 0DBN8ZZ Excision of Sigmoid Colon, Via Natural or Artificial Opening Endoscopic (ICD-10-PCS; 2018-08-03)
PROC: 0DBK8ZZ Excision of Ascending Colon, Via Natural or Artificial Opening Endoscopic (ICD-10-PCS; 2018-08-03)
PROC: 0DBH8ZZ Excision of Cecum, Via Natural or Artificial Opening Endoscopic (ICD-10-PCS; 2018-08-03)
DX: K29.71 Gastritis, unspecified, with bleeding (principal); N17.0 Acute kidney failure with tubular necrosis; E44.1 Mild protein-calorie malnutrition; Z68.43 Body mass index [BMI] 50.0-59.9, adult; I42.0 Dilated cardiomyopathy; D68.59 Other primary thrombophilia; I48.2 Chronic atrial fibrillation; I12.9 Hypertensive chronic kidney disease with stage 1 through stage 4 chronic kidney disease, or unspecified chronic kidney disease; D3A.092 Benign carcinoid tumor of the stomach; G72.9 Myopathy, unspecified; N28.89 Other specified disorders of kidney and ureter; N18.9 Chronic kidney disease, unspecified; I08.3 Combined rheumatic disorders of mitral, aortic and tricuspid valves; E11.22 Type 2 diabetes mellitus with diabetic chronic kidney disease; E66.01 Morbid (severe) obesity due to excess calories; K57.31 Diverticulosis of large intestine without perforation or abscess with bleeding; I87.2 Venous insufficiency (chronic) (peripheral); D50.9 Iron deficiency anemia, unspecified; I80.8 Phlebitis and thrombophlebitis of other sites; E78.5 Hyperlipidemia, unspecified; M19.012 Primary osteoarthritis, left shoulder; M17.0 Bilateral primary osteoarthritis of knee; K52.9 Noninfective gastroenteritis and colitis, unspecified; Z90.710 Acquired absence of both cervix and uterus; Z79.01 Long term (current) use of anticoagulants
CPT/HCPCS: 10045; 10047; 62110; 62900; 70005

== ENCOUNTER 2018-12-28 03:55 | Emergency (ER) | payer OTHER ==
[~2018-12-28] VITALS: Ht 167.6 cm; Wt 158.8 kg
[~2018-12-28 03:55] MED LIST changes: +ACETAMINOPHEN325 M1 PO; +CARDIZEM CD240 MG PO; +CARVEDILOL12.5 MG PO; +COZAAR 25 MG TA25 M1 PO; +CRESTOR5 MG PO; +DILTIAZEM 24HR360 M1 PO; +PRADAXA150 MG PO; +PROTONIX40 M1 PO; +TRAMADOL 50 MG50 MG PO
[2018-12-28 07:59] VITALS: BP 103/79
[2018-12-29] MEDS ORDERED: CRESTOR5 MG PO (06:25)
[2018-12-29] MEDS ORDERED: LASIX 40 MG TAB40 M2 PO (06:26)
[2018-12-29] MEDS ORDERED: COREG25 MG PO (06:27)
[2018-12-29] MEDS ORDERED: IBUPROFEN 600600 M1 (06:29)
== END 2018-12-28 08:02 | disposition home or self-care (01) ==
LOC: ER 03:55
DX: M79.604 Pain in right leg (principal); R00.0 Tachycardia, unspecified; I10 Essential (primary) hypertension; E11.9 Type 2 diabetes mellitus without complications; I48.91 Unspecified atrial fibrillation; E66.01 Morbid (severe) obesity due to excess calories; Z68.43 Body mass index [BMI] 50.0-59.9, adult; Z90.710 Acquired absence of both cervix and uterus

== ENCOUNTER 2018-12-29 01:39 | Inpatient (IN) | payer OTHER ==
[~2018-12-29] VITALS: Ht 165.1 cm; Wt 162.7 kg
--- NOTE | ~2018-12-29 | H ---
[facility] [place] [address] [address] HISTORY AND PHYSICAL Name: VIOLA DENT Room #: 460-P [facility] IN M.R.#: [id number] Admission: 12/29/18 ������������������ Attend Phys: Gaby Garcia MD Discharge: ������������������ Date of : 45 Report #: [id number] THIS REPORT FOR: //name// CC: Duane Euceda Gallito Gaby Garcia DATE OF SERVICE: 12/29/2018 ATTENDING PHYSICIAN: Gaby Garcia MD CHIEF COMPLAINT: Right thigh pain and lower extremity weakness. HISTORY OF PRESENT ILLNESS: The patient is a 73-year-old lady with known history of morbid obesity who was recently discharged from rehab and was in an assisted living facility. The patient reports that in the last 2-3 weeks she has been experiencing pain in her right thigh, which is intermittent and it feels like numbness and pins and needles. Associated with that she has had difficulty ambulating and getting around with her walker. The patient has difficulty transferring and getting off the chair. The patient denied having any fall. PAST MEDICAL HISTORY: Significant for history of morbid obesity, hypertension, diet-controlled diabetes mellitus, osteoarthritis of her knees, left ankle wound, atrial fibrillation on blood thinners, and lower extremity venous insufficiency. MEDICATIONS: She was currently on was Coreg, diltiazem, pantoprazole and dabigatran. ALLERGIES: She is not known to be allergic to medication. SOCIAL HISTORY: She does not smoke, drinks alcohol occasionally. REVIEW OF SYSTEMS: She denied having any chest pain or breathing difficulty. No nausea, vomiting, no abdominal pain or any urinary symptoms. PHYSICAL EXAMINATION: GENERAL: Pleasant elderly lady who was sitting by the bedside. She was morbidly obese, did not appear to be in any distress. She was awake, alert to place and person. VITAL SIGNS: She was febrile with temperature of 36.2, pulse of 103, respiratory rate 20, blood pressure 129/76, oxygen saturation 98% on room air. HEENT: Skull was atraumatic. There was mild pallor, no icterus. Mucosa was moist. NECK: Supple. [facility] [address] [place] [address] HISTORY AND PHYSICAL Name: VIOLA DENT Room #: 460-P [facility] IN M.R.#: [id number] Admission: 12/29/18 ������������������ Attend Phys: Gaby Garcia MD Discharge: ������������������ Date of : 45 Report #: [id number] LUNGS: Clear to auscultation bilaterally with no wheezing or crackles. HEART: First and second heart sounds, which were regular. ABDOMEN: Mainly obesity. It was nontender. EXTREMITIES: Revealed chronic stasis skin changes due to venous insufficiency. There was a chronic left ankle wound present, which was healing. NEUROLOGIC: Cranial nerve exam normal. Speech was normal. The patient was moving upper extremities equally and normally. There was proximal muscle weakness in the lower extremities. LABORATORY DATA: On admission showed a UA which was clear. White cell count of 7.8, hemoglobin 10, hematocrit 33.3 and a platelet count of 154. Sodium was 142, potassium 4.5, chloride 107, bicarbonate 25, BUN of 30, creatinine of 1.2, glucose was 108, calcium was 9.6. ASSESSMENT: 1. Disuse myopathy. 2. Hypertension. 3. Morbid obesity. 4. Osteoarthritis. 5. Atrial fibrillation, on chronic anticoagulation. 6. Diet controlled diabetes mellitus. PLAN: To continue her home medications. We will have Physical Therapy evaluate her for ADLs. ��������������������������������������������� ���������������������������������������� By: ��������������������������������������������� 0830 1206 Gaby Garcia MD /nt
[2018-12-29 01:40] VITALS: BP 131/69
[2018-12-29 02:55] LABS: ABSOLUTE NEUTROPHILS 6.2 thou/uL (1.4-8.2); BASOPHILS 0.7 % (0.0-2.0); EOSINOPHILS 1.4 % (0.0-3.0); HEMATOCRIT 33.3 % (37.0-47.0); LYMPHOCYTES 12.2 % (24.0-44.0); MCH 25.5 pg (26.0-34.0); MCHC 29.9 g/dL (28.0-37.0); MCV 85.1 fL (80.0-100.0); MONOCYTES 6.4 % (1.0-8.0); PLATELET COUNT 154 thou/uL (150-400); POLYS 79.3 % (36.0-66.0); RBC 3.92 mil/uL (4.20-5.00); RDW 19.4 % (10.5-14.5); WBC 7.8 thou/uL (4.0-11.0)
[2018-12-29 03:11] LABS: ANION GAP 10 mmol/L (7-16); BUN 30 mg/dL (7-18); CALCIUM 9.6 mg/dL (8.5-10.1); CHLORIDE 107 mmol/L (98-107); CO2 25 mmol/L (21-32); CREATININE 1.2 mg/dL (0.6-1.0); GLUCOSE 108 mg/dL (74-106); POTASSIUM 4.5 mmol/L (3.5-5.1); SODIUM 142 mmol/L (136-145)
[2018-12-29 03:19] LABS: TROPONIN-I <0.06 ng/mL (<0.06)
[2018-12-29 04:08] LABS: ANISOCYTOSIS 2+; HYPOCHROMASIA 1+; MICROCYTES 1+
[2018-12-29 04:09] LABS: POLYCHROMASIA 1+
[2018-12-29 04:51] LABS: URINE BILIRUBIN NEGATIVE (Negative); URINE BLOOD NEGATIVE (Negative); URINE CLARITY CLEAR; URINE COLOR YELLOW; URINE GLUCOSE-RANDOM* NEGATIVE (Negative); URINE KETONES NEGATIVE (Negative); URINE LEUKOCYTES-REFLEX NEGATIVE (Negative); URINE NITRITE-REFLEX NEGATIVE (Negative); URINE PROTEIN (DIPSTICK) 1+ (Negative); URINE SPECIFIC GRAVITY >= 1.030 (1.005-1.035); URINE UROBILINOGEN 0.2 E.U./dl (0.2-1.0)
[2018-12-29 05:09] LABS: AMORPHOUS URATES Few /LPF (None Seen); BACTERIA-REFLEX None Seen /HPF (None Seen); CRYSTALS None Seen /LPF (None Seen); HYALINE CASTS 0-3 Few /LPF (None Seen); MUCUS 0-3 Light strn/LPF (None Seen); SQUAMOUS 0-3 Few /LPF (0-3); URINE RBC None Seen /HPF (0-2); URINE WBC-REFLEX None Seen /HPF (0-5)
[2018-12-29 05:41] VITALS: BP 112/69
[2018-12-29 05:47] VITALS: BP 135/87
[2018-12-29 06:25] VITALS: BP 129/76
[2018-12-29] MEDS ORDERED: CRESTOR5 MG PO (06:25)
[2018-12-29] MEDS ORDERED: LASIX 40 MG TAB40 M2 PO (06:26)
[2018-12-29] MEDS ORDERED: COREG25 MG PO (06:27)
[2018-12-29] MEDS ORDERED: IBUPROFEN 600600 M1 (06:29)
--- NOTE | 2018-12-29 06:55 | NUR ---
ADMITTED FROM ER UNDER 'S CARE. VSS. ADMITTED WITH DEBILITY AND LEG PAIN. EDUCATION AND HISTORY COMPLETED. HOME MEDS RECORDED AND WILL BE SENDING TO PHARMACY FOR SAFEKEEP. NO S/S ACUTE DISTRESS NOTED OR REPORTED AT THIS TIME. WILL GIVE REPORT TO INCOMING RN.
[2018-12-29 08:54] VITALS: BP 123/77
[2018-12-29 16:14] VITALS: BP 131/88
--- NOTE | 2018-12-29 19:55 | NUR ---
PT A&OX4, VSS, PAIN IN BILAT LEGS AND UNDER ABD FOLDS. NYSTATIN POWDER APPLIED TO ABD FOLDS. PATIENT UP MAX ASSIST TO BEDSIDE COMMODE. PHOTO TAKEN OF WOUND ON LEFT LE. WOUND CARE CONSULT PLACED. FALL BUNDLE IN PLACE. WILL CONTINUE TO MONITOR.
--- NOTE | 2018-12-30 03:58 | NUR ---
Assumed care at 1845. Pt resting in bed. AOX4. VSS. Pt stated she was having a charley horse on both lower extremities. Called Dr Delgado and got orders approved for gabapentin. Cleaned abdmn and applied z-gaude. No identified needs at the moment. Call light within reach. No identified needs at the moment. Will continue to monitor.
[2018-12-30 04:30] VITALS: BP 109/63
[2018-12-30 07:45] VITALS: BP 102/54
[2018-12-30 15:23] VITALS: BP 116/77
--- NOTE | 2018-12-30 18:42 | NUR ---
PT A&OX4, VSS, PAIN BILAT LE. PT UP TO BEDSIDE COMMODE. DWIGHT AREA CLEANED AND DRIED. PT HAS REDNESS AND TENDERNESS UNDER ABD FOLD. WOUND CONSULT, PT/OT CONSULT PLACED. PT HAS HIGH ANXIETY. PT HAS WEEPING BILAT CELLULITIS. FALL BUNDLE IN PLACE. WILL CONTINUE TO MONITOR.
[2018-12-30 20:17] VITALS: BP 124/73
[2018-12-31 04:19] VITALS: BP 127/82
--- NOTE | 2018-12-31 04:47 | NUR ---
PATIENT ALERT AND ORIENTED X4. MAX OF 2-3 ASSIST TO GET PATIENT COMFORTABLE IN THE BED FROM SITTING POSITION. MEDICATED FOR PAIN X2 AT TIME OF NOTE. CALLING OUT SEVERAL TIMES DURING THE NIGHT FOR REPOSITIONING. FEMALE CATHETER TO WALL SUCTIONING IN AND OUT OF PLACE DUE TO PATIENTS RESTLESSNESS. DRESSINGS TO BILATERAL LOWER LEGS REMAIN DRY AND INTACT. WILL MONITOR.
[2018-12-31 08:00] VITALS: BP 133/84
--- NOTE | 2018-12-31 08:35 | EKG ---
[address] [place] [email or web address] [address] ELECTROCARDIOGRAM REPORT Name: VIOLA DENT Room #: 460-P ADM IN M.R.#: [id number] ������������������ Admission: 12/29/18 ������������������ Attend Phys: Gaby Garcia MD Discharge: ������������������ Date of : 45 Report #: [id number] ����������������������������������������������������������������� [id number] THIS REPORT FOR: //name// [facility] ED Test Date: 2018-12-29 Test Time: 03:10:21 Pat Name: VIOLA DENT Department: Room: [facility] Gender: F Marine Underwriter: JOSH : 1945 Requested By: Trevor Reynolds Order Number: [id number] MD: Andry Osborn Measurements Intervals [place] Rate: 93 P: [place]: QRS: -71 QRSD: 148 T: 5 QT: 388 QTc: 483 Interpretive Statements Atrial fibrillation Ventricular premature complex Right bundle branch block Compared to ECG 08/02/2018 07:32:39 Ventricular premature complex(es) now present Electronically Signed On 12-31-2018 8:35:21 CDT by Andry Osborn [email or web address] ��������������������������������������������� <ELECTRONICALLY SIGNED> ���������������������������������������� By: Andry Osborn MD ��������������������������������������������� 12/31/18 0835 9 9 Andry Osborn MD /ROHAN
--- NOTE | 2018-12-31 11:22 | NUR ---
Assess due to notification of high BMI 59.7=extreme class III obesity. Admitted with leg pain and debility. Pt with noted weeping cellulitis. Last admit had poor intake and was drinking Ensure Max. This admit stated eating fine, asking to have Na restriction lifted because of heart healthy diet. Explained she is on lasix and may need to continue this restriction. Wt is up 8 lb from 07/2018. Pt denied need for diet education. Low nutrition risk
--- NOTE | 2018-12-31 11:23 | NUR ---
WOUND CARE CONSULT; ASSESSMENT REVEALS AREAS TO THE LEFT LATERAL LEG AND THE RIGHT LAT LEG. WOUND ASSESSMENT FINDINGS CONSISTANT WITH VENOUS STASIS WOUNDS BUT CANNOT R/O ARTERIAL ALTHOUGH PATIENT DENIES PAIN. SHE IS EXTREMLY PLEASEANT. NO S/S OF INFECTION OR WOUND DEBRIS. ALL WOUND MARGINS ARE IRREGULAR. PATIENT STATES SHE USES THERAHONEY AT HOME, BUT NOT APPROPRIATE AT THIS MOMENT. RECOMMENDATIONS; FOAM AG TO ALL LE WOUNDS CHANGE DAILY/PRN DISCUSSED WITH ERROL
[2018-12-31 15:00] VITALS: BP 116/58
--- NOTE | 2018-12-31 16:59 | NUR ---
PT ADMITTED RELATED TO LEG PAIN, DEBILITY. CM REVEIWED EVART AND SPOKE WITH CARE TEAM. CM MET WITH PT AT BEDSIDE THIS DAY. PT IS A&O X4. CM ROLE INTRODUCED. PT INDICATED SHE LIVES IN [facility]. PT INDICATED SHE HAS A POWER WC SHE USES TO GET TO AND FROM MEALS AND ACTIVITES, A MANUA WC, AND FWW, AND A 4WW. PT INDICATED SHE HAD [facility] IN THE PAST. 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 PT INDICATED SHE IS RECEPTIVE O POST ACUTE CARE STAY IF RECOMMENDED BY CARE TEAM. CM PROVIDED SNF LIST FOR HER TO [facility] FOR POSSIBLE DISHCARGE TOMORROW. CM TO FOLLOW UP WITH PT TO SEE WHRER SHE WOULD LIKE REFERRALS SENT. CM TO FOLLOW INDICATED WITH DC PLANNING.
[2018-12-31 19:44] VITALS: BP 87/53
--- NOTE | 2018-12-31 19:58 | NUR ---
Received awake on bed. Due medications given as prescribed. With SL at Right AC. With bilateral leg dressings, with weeping cellulitis. Pt seen by Wound nurse today, dressings changed. Patient up with 2- max assist. Had PT session today, tolerated well. Complained of pain, due medications given as prescribed with complete to partial pain relief. Patient requested to have IV SL removed at 1300. Able to open bowels today, used bedside commode with assist from FIRE HYDRANT OPERATOR and RN, used walker. Able to sit out on bed and wheelchair. Vital signs stable. Seen by Dr. valentin. A+Ox4, patient slightly anxious. Complained of itchiness and with redness at skin flaps- Nystatin powder applied to affected areas.
[2019-01-01 03:41] VITALS: BP 131/41
--- NOTE | 2019-01-01 04:54 | NUR ---
PAIN CONTROLLED THIS SHIFT. PATIENT BEEN REQUESTING TO SIT AT THE SIDE OF THE BED SEVERAL TIMES THIS SHIFT. PATIENT HAD REDNESS ON HER FOLDS, CLEANSED WITH NS PATTED DRIED AND APPLIED NYSTATIN PER ORDER. PATIENT RIGHT LEG WAS WEEPING, CLEANSED WITH NS PATED DRY, AG AND SECURED. LEFT LEG DRESSING WAS C/D/I.NO S/S OF INFECTION ON RLE. FALL PRECAUTION IN PLACE. PATIENT IN BED ASLEEP AT THIS TIME BREATHING REGULAR AND UNLABOURED.
[2019-01-01 10:02] VITALS: BP 128/80
[2019-01-01] MEDS ORDERED: GABAPENTIN 100100 MG PO (10:05)
[2019-01-01] MEDS ORDERED: ACETAMINOPHEN325 M1 PO (10:06)
[2019-01-01] MEDS ORDERED: NYAMYC15 GM TOP (10:06)
--- NOTE | 2019-01-01 10:52 | NUR ---
[facility] Director sent initial referral to [facility] fax # [phone]. Patient is ready today, dp requested that they seek authorization. DP received fax confirmation page, also called and left message [phone] with admissions at and let them know of faxed referral.
--- NOTE | 2019-01-01 13:31 | NUR ---
DP faxed referral to [facility], fax [phone]. Patient ready today.
--- NOTE | 2019-01-01 14:46 | NUR ---
CM FOLLOWED UP WITH PT THIS AM AND SHE ASKED THAT REFERRAL BE SENT TO [facility] FOR REVIEW FOR POSSIBLE ADMISSION. REFERRAL WAS SENT. [facility] INDICATED THEY WEREN'T ABLE TO ACCEPT PT DUE TO HER WEIGHT. CM NOTIFIED PT AND SHE ASKED THAT REFERRALS BE SENT TO [facility] AND [facility] FOR REVIEW. CM TO FOLLOW INDICATED WITH DC PLANNING.
[2019-01-01 15:17] VITALS: BP 113/65
--- NOTE | 2019-01-01 16:17 | NUR ---
[facility] indicated they can accept pt medically awaiting insurance auth.
[2019-01-01 19:30] VITALS: BP 108/55
--- NOTE | 2019-01-01 19:32 | NUR ---
ASSUMED CARE OF PATIENT AT 0715, PATIENT ALERT AND ORIENTED X 4. PATIENT UP WITH ASSIST X 2 WITH GAIT BELT AND WALKER. PATIENT VERY NEEDED THROUGHOUT THE SHIFT. PAYIENT C/O PAIN WITH BILATERAL LOWER EXTREMITIES, RECEIVED TYLENOL X 2 THIS SHIFT. BILATERAL LEGS DRESSING IN PLACE, C/D/I, PATIENT REFUSED THIS RN TO CHANGE DRESSINGS THIS SHIFT. NO IV ACCESS. PATIENT HAS REDESS TO ALL FOLDS, UNDER BREASTS, PATIENT RECEIVED BATH THIS AM, NYSTATIN POWDER APPLIED AND INTER-DRY TO AFFECTED AREAS. PATIENT MAY DISCHARGE TO SKILLED FACILITY TOMORROW. WILL CONTINUE TO MONITOR.
--- NOTE | 2019-01-02 01:15 | NUR ---
Assumed care at at 1845. Pt resting in bed. AOX4. VSS. Pt still having muscle spasms on left leg. Pt stated that she wanted some pain medication. Informed Dr Delgado who agreed to give diclofenac gel. Informed the Doctor that the patient was threating to leave the hospital. Bilateral leg dressing CDI. No identified needs at the moment. Will continue to monitor.
[2019-01-02 03:16] VITALS: BP 147/95
[2019-01-02 07:15] VITALS: BP 142/71
--- NOTE | 2019-01-02 09:00 | NUR ---
PT SITTING ON SIDE OF BED THIS AM. PT WANTING TO GET INTO W/C. ASSISTED PT X2 PERSON TO W/C WITH PERSONAL GAIT BELT. PT NEEDS TO ROCK IN BED X5 BEFORE STANDING UP. PT STATED SHE HAD A BAD NIGHT LAST NIGHT WITH THE PAIN TO HER RT THIGH. SHE STATED SHE WAS YELLING FOR PAIN CONTROL AND ALMOST LEFT TO GO SOMEWHERE ELSE. SHE STATED THAT WAS BORN IN [facility], AND THAT THIS HOSPITAL IS NOT THE SAME THERE. SHE STATED THAT THE ATMOSPHERE WAS FRIENDLY AND CLEAN. SHE STATED SHE WILL NOT COME BACK HERE. PT HAS FOUL ODOR OF YEAST UNDER ARMS, BREAST, AND PANIS. PT STATED SHE ONLY HAD TYLENOL LAST NIGHT FOR PAIN.
--- NOTE | 2019-01-02 10:00 | NUR ---
ADM TYLENOL 325MG 2 TABS PO FOR PAIN TO LEGS OF 10 ON 1-10 SCALE.
--- NOTE | 2019-01-02 10:22 | NUR ---
heidi [facility] [place]
--- NOTE | 2019-01-02 10:26 | NUR ---
WOUND CARE FOLLOW UP; THE BILATERAL LE WOUNDS HAD MORE DRAIONAGE RELATED TO THE PATIENTS NON COMPLIANCE WITH ELEVATION OF THESE EXTREMITIES. I ENCOURAGED THE PATIENT REGARDING THIS AND BLADE WORKER. RECOMMEDATIONS; CONTINUE CURRENT ORDERS WITH ELEVATION. DISCUSSED WITH RN
[2019-01-02 14:57] VITALS: BP 110/69
[2019-01-02 15:40] LABS: CALCIUM 9.2 mg/dL (8.5-10.1); CREATININE 1.1 mg/dL (0.6-1.0); POTASSIUM 4.5 mmol/L (3.5-5.1)
--- NOTE | 2019-01-02 15:49 | NUR ---
AWAITING INSURANCE AUTH. CM TO FOLLOW INDICATED WITH DC PLANNING.
--- NOTE | 2019-01-02 17:10 | NUR ---
PT GETTING IV PLACED BY IV TEAM NURSE AT THIS TIME. PT HAD WENT DOWN EARLIER TO GET A CT SCAN, PT DIDN'T HAVE IV AND HAD TO WAIT ON TEST. PT DID GET US OF LOWER LEGS AT THAT TIME.
--- NOTE | 2019-01-02 17:30 | NUR ---
ASSISTED PT TO [facility]SC TO VOID. PT ABLE TO TRANSFER FROM W/C TO BSC X1 ASSIST. NEEDED HELP GETTING PT BACK TO BED X2 ASSIST. PT WAS GETTING TIRED AND COULDN'T DO IT WITH X1 NURSE.
[2019-01-02 20:17] VITALS: BP 116/59
--- NOTE | 2019-01-03 04:51 | NUR ---
ASSUMED CARE OF PT AT 1900HRS. PT A0X4 AND CALLS FOR HELP NEEDED. PT REFUSED TO HAVE CT DONE ON 01/02/19 AND WANTS IT DONE ON 01/03/19. PT COMPLAINED OF PAIN ON LEGS, BACK AND ADB. PT WAS NOT ABLE TO GET VERY COMFORTABLE EVEN WITH ORDERED ULTRAM. PT WAS ANXIOUS THROUGH THE NIGHT. CONSIDER OTHER PAIN MANAGEMANT OPTIONS ALONG WITH ANTI-ANXIETY MEDICATION. PT WAS ABLE TO GET MINIMAL SLEEP. NO OTHER S/S OF ACUTE DISTRESS. WILL CONTINUE TO MONITOR.
[2019-01-03 05:23] VITALS: BP 142/88
[2019-01-03 08:11] VITALS: BP 109/68
[2019-01-03] MEDS ORDERED: TRAMADOL 50 MG50 MG PO (10:48)
--- NOTE | 2019-01-03 11:55 | NUR ---
Discharge Planning: [facility] has authorization on patient. Patient is getting CT Scan today and then can discharge. DP called [facility] and asked Katlyn/construction secretary to make a chart copy for patient.
--- NOTE | 2019-01-03 14:15 | NUR ---
[facility] P[facility] RECIEVED AUTH FOR PT TO ADMIT THERE THIS DAY. CHART COPY ORDERED. ORDERS FAXED. WHEELCHAIR VAN TRANSPORT ARRANGED FOR 1600. PT IS AWARE AND AGREEABLE. REPORT TO BE CALLED TO . NO OTHER CM INTERVENTION INDICATED. CASE CLOSED.
[2019-01-03 14:38] VITALS: BP 100/63
--- NOTE | 2019-01-03 14:57 | NUR ---
WOUND CARE FOLLOW UP; I AM SEEING THIS PATIENT TODAY RE; A DRAMATIC INCREASE IN DRAINAGE YESTERDAY. LAST NITE AN TODAY WERE MUCH BETTER FOR THE PATIENT. THERE WAS NO STRIKETHROUGH DRAINAGE, ODER OR COMPLAINTS FROM THE PATIENT. RECOMMENDATION; CONT.. TO FOLLOW
--- NOTE | 2019-01-03 17:31 | NUR ---
DIS PT IS FOR DC. WOUND CARE AND DRESSING DONE. DC ENVELOPE GIVEN TO TRANSPORT PERSONEL. CT ABD REPORT CALLED IN TO PROVIDER. IV DC'D.
== END 2019-01-03 17:57 | DRG 92 ==
LOC: ER 01:39 → EROBS 05:30 → 4W 05:30
PROVIDERS: Emergency Medicine; Internal Medicine Geriatric Medicine; ADMIT Internal Medicine
DX: G72.9 Myopathy, unspecified (principal); I42.9 Cardiomyopathy, unspecified; Z68.43 Body mass index [BMI] 50.0-59.9, adult; I10 Essential (primary) hypertension; E66.01 Morbid (severe) obesity due to excess calories; M19.90 Unspecified osteoarthritis, unspecified site; M17.0 Bilateral primary osteoarthritis of knee; E11.40 Type 2 diabetes mellitus with diabetic neuropathy, unspecified; I48.2 Chronic atrial fibrillation; E78.5 Hyperlipidemia, unspecified; D64.9 Anemia, unspecified; H16.429 Pannus (corneal), unspecified eye; N28.89 Other specified disorders of kidney and ureter; D3A.019 Benign carcinoid tumor of the small intestine, unspecified portion; M79.604 Pain in right leg; Z86.010 Personal history of colon polyps; Z90.710 Acquired absence of both cervix and uterus; Z79.899 Other long term (current) drug therapy; Z79.01 Long term (current) use of anticoagulants
CPT/HCPCS: 10047